=== PATIENT | male | born 1980 | race Caucasian/White ===

== ENCOUNTER 2018-08-10 16:32 | Emergency (ER) | payer OTHER ==
[2018-08-10 17:35] VITALS: BP 126/98
--- NOTE | 2018-08-10 18:03 | UC ---
Cardiac HPI - HPI Summary HPI Summary: Patient complains of about 1 month of sharp left-sided chest pain. He sustained a compound fracture of his right ankle last summer and since then has been using crutches to assist with mobility. For the past few months he has only been using a left-sided crutch. At his orthopedic appointment 1 week ago he was told his blood pressure was high and he should have it evaluated. Patient does not know what his reading was. Has not yet established with a PCP so came in here for further evaluation of his left-sided chest pain and blood pressure. Pain is worse with deep breaths, coughing and movement. Not worse with exertion. He denies shortness of breath and sweats. He did have some nausea last week for a couple of days but none now. - History of Current Complaint Chief Complaint: UCChestPain Stated Complaint: CHEST PAIN Time Seen by Provider: 08/10/18 16:52 Hx Obtained From: Patient Onset/Duration: Gradual Onset, Lasting Weeks, Still Present Timing: Constant Initial Severity: Moderate Current Severity: Moderate Pain Intensity: 4 Chest Pain Location: Left Anterior Character: Sharp/Stabbing Aggravating Factor(s): Movement, Deep Breaths Alleviating Factor(s): Rest Associated Signs & Symptoms: Positive: Chest Pain. Negative: Headaches, Numbness, Tingling, Dizziness, SOB, Nausea/Vomiting, Cough, Back Pain - Allergy/Home Medications Allergies/Adverse Reactions: Allergies Allergy/AdvReac Type Severity Reaction Status Date / Time No Known Allergies Allergy Verified 08/10/18 16:44 PMH/Surg Hx/FS Hx/Imm Hx Previously Healthy: Yes - Surgical History Surgical History: Yes Surgery Procedure, Year, and Place: Ear surgery. R ankle surgery x 3 - Family History Known Family History: Positive: Other - CVA Negative: Cardiac Disease - Social History Alcohol Use: Weekly Substance Use Type: Marijuana Smoking Status (MU): Heavy Every Day Tobacco Smoker Review of Systems All Other Systems Reviewed And Are Negative: Yes Constitutional: Positive: Negative Skin: Positive: Negative Respiratory: Positive: Negative Cardiovascular: Positive: Chest Pain Gastrointestinal: Positive: Negative Musculoskeletal: Positive: Myalgia Physical Exam Triage Information Reviewed: Yes Appearance: Well-Appearing, No Pain Distress, Well-Nourished Vital Signs: Initial Vital Signs Temp 99.7 F 08/10/18 16:39 Pulse 95 08/10/18 16:39 Resp 18 08/10/18 16:39 BP 154/98 08/10/18 16:39 Pulse Ox 100 08/10/18 16:39 Vital Signs Reviewed: Yes Eyes: Positive: Conjunctiva Clear ENT: Positive: Hearing grossly normal, Pharynx normal, TMs normal Neck: Positive: Supple, Nontender, No Lymphadenopathy Respiratory Exam: Normal Cardiovascular Exam: Normal Abdomen Description: Positive: Soft Musculoskeletal: Positive: No Edema Neurological: Positive: Alert Psychological: Positive: Age Appropriate Behavior Skin: Negative: Rashes - Assessment/Plan Course Of Treatment: ADVISED PATIENT THAT I COULD NOT PROPERLY EVALUATE FOR ANY UNDERLYING CARDIAC ETIOLOGY FOR HIS CHEST PAIN. SYMPTOMS ARE CONSISTENT WITH MUSCULOSKELETAL STRAIN FROM OVERUSE. PATIENT HAS BEEN USING A CRUTCH ON HIS LEFT SIDE FOR SEVERAL MONTHS DUE TO AN ANKLE FRACTURE. WILL TREAT SUCH WITH IBUPROFEN AND FLEXERIL. ADVISED TO REST AND STRETCH ABLE. FOLLOW-UP WITH PCP. PT DECLINES TRANSFER TO ED. ADVISED THAT HE COULD BE RISKING WORSENING OF HIS CONDITION THAT COULD POSE A THREAT TO HIS LIFE, HEALTH AND MEDICAL SAFETY. HE VERBALIZES UNDERSTANDING AND CONTINUES TO DECLINE TRANSFER. - Clinical Impression Provider Diagnosis: Muscle strain of anterior chest wall Discharge - Sign-Out/Discharge Documenting (check all that apply): Patient Departure All imaging exams completed and their final reports reviewed: No Studies - Discharge Plan Condition: Stable Disposition: HOME Prescriptions: Cyclobenzaprine TAB* [Flexeril TAB*] 10 mg PO BID PRN #30 tab PRN Reason: Pain Ibuprofen TAB* [Motrin TAB* 600 MG] 1 tab PO Q6H PRN #30 tab PRN Reason: Pain Patient Education Materials: Muscle Strain (ED) Referrals: [facility] [Outside] - 1 Week Additional Instructions: YOUR RECHECK BP WAS 126/98. THE BOTTOM NUMBER IS HIGH. YOU SHOULD HAVE THIS ADDRESSED. IF YOU ARE UNABLE TO ESTABLISH WITH A PCP MAKE AN APPT WITH [facility] OR GO TO THE [facility]. 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 USE THE IBUPROFEN FOR PAIN. MUSCLE RELAXER 2 TIMES DAILY IF NEEDED. IT CAN MAKE YOU DROWSY SO USE WITH CAUTION. BE SURE TO GO THROUGH SLOW RANGE OF MOTION AND STRETCHING EXERCISES DAILY YOU ARE ABLE TO PREVENT STIFFENING UP AND MAKING THE DISCOMFORT WORSE. REST MUCH POSSIBLE. BE AWARE THAT WE HAVE NOT EVALUATED YOU FOR ANY UNDERLYING CARDIAC ETIOLOGY. GO TO THE ER WITHOUT FAIL IF YOU DEVELOP SHORTNESS OF BREATH, WORSENING CHEST PAIN, NAUSEA, SWEATS, DIZZINESS OR ANY OTHER CONCERNING SYMPTOMS. FOR HELP WITH APPLYING FOR INSURANCE COVERAGE CONTACT AN INSURANCE NAVIGATOR AT THE [facility] OR [address] [phone] [email or web address] WALK IN HOURS WEDNESDAY 2P-6P WEDNESDAY 4P-8P [address] - Billing Disposition and Condition Condition: STABLE Disposition: Home
== END 2018-08-10 17:47 | disposition home or self-care (01) ==
LOC: UCEAST 16:32
DX: S29.011A Strain of muscle and tendon of front wall of thorax, initial encounter (principal); F17.290 Nicotine dependence, other tobacco product, uncomplicated; X58.XXXA Exposure to other specified factors, initial encounter; Y92.9 Unspecified place or not applicable
CPT/HCPCS: 99202; G0463

== ENCOUNTER → 2018-08-19 14:28 | Emergency (ER) | payer SELFPAY ==
[2018-08-19 16:40] VITALS: BP 141/88
== END | disposition left against medical advice (07) ==
LOC: ED 14:28
DX: R07.9 Chest pain, unspecified (principal); Z53.21 Procedure and treatment not carried out due to patient leaving prior to being seen by health care provider
CPT/HCPCS: 71046; 93005

== ENCOUNTER 2018-08-25 05:48 | Emergency (ER) | payer MEDICAID ==
--- NOTE | 2018-08-25 06:26 | ED ---
HPI Chest Pain - HPI Summary HPI Summary: Pt. is a 37 y.o male who presents to the ER for chest pain x 2 months. Pt. states he had a right compound ankle fracture during the summer of last year which led to multiple surgeries. Pt. states he has been in PT and is now using one crutch. Pt. does not recall any injury to chest wall but notes he is in PT and was using crutches for a while. Pt. states pain is located to a specific spot to his left anterior chest wall. Pain is worse with inspiration and leaning forward. Pain does not increase with physical activity. Pt. currently does not have a PCP but states his BP has been high at his ortho. apts. Pt. does smoke. He notes he believes his grandfather had a heart attack when he was older. Pt. otherwise denies recent illness, cough, fever, abd. pain, calf swelling/pain. Sxs are moderate in severity. - History of Current Complaint Chief Complaint: EDChestWallPain Time Seen by Provider: 08/25/18 06:10 Hx Obtained From: Patient Pain Intensity: 4 - Allergy/Home Medications Allergies/Adverse Reactions: Allergies Allergy/AdvReac Type Severity Reaction Status Date / Time No Known Allergies Allergy Verified 08/25/18 05:59 Home Medications: Home Medications NK [No Home Medications Reported] 08/25/18 [History Confirmed 08/25/18] PMH/Surg Hx/FS Hx/Imm Hx Previously Healthy: Yes - Surgical History Surgery Procedure, Year, and Place: Ear surgery. R ankle surgery x 3 Infectious Disease History: No Infectious Disease History: Denies: Traveled Outside the [place] in Last 30 Days - Family History Known Family History: Positive: Other - CVA Negative: Cardiac Disease - Social History Occupation: Employed Full-time Lives: With Family Alcohol Use: Weekly Alcohol Amount: 4/5x Substance Use Type: Reports: Marijuana Smoking Status (MU): Heavy Every Day Tobacco Smoker Review of Systems Constitutional: Negative Negative: Fever, Chills Eyes: Negative ENT: Negative Positive: Chest Pain Respiratory: Negative Negative: Shortness Of Breath, Cough Gastrointestinal: Negative Negative: Abdominal Pain, Vomiting, Diarrhea Genitourinary: Negative Positive: Other - left sided chest pain Skin: Negative Neurological: Negative All Other Systems Reviewed And Are Negative: Yes Physical Exam Triage Information Reviewed: Yes Vital Signs On Initial Exam: Initial Vitals Temp Pulse Resp BP Pulse Ox 98.0 F 108 20 132/90 97 08/25/18 05:55 08/25/18 05:55 08/25/18 05:55 08/25/18 05:55 08/25/18 05:55 Vital Signs Reviewed: Yes Appearance: Positive: Well-Appearing - Pt. sitting up in bed in NAD. Skin: Positive: Warm, Dry Head/Face: Positive: Normal Head/Face Inspection Eyes: Positive: Normal, EOMI, JAZLYN, Conjunctiva Clear ENT: Positive: Pharynx normal, TMs normal Neck: Positive: Supple Respiratory/Lung Sounds: Positive: Clear to Auscultation, Breath Sounds Present. Negative: Rales, Rhonchi, Wheezes Cardiovascular: Positive: Normal, RRR. Negative: Murmur Neurological: Positive: Normal, CN Intact II-III Psychiatric: Positive: Affect/Mood Appropriate Diagnostics - Vital Signs Vital Signs Temp Pulse Resp BP Pulse Ox 08/25/18 06:08 90 21 132/85 97 08/25/18 06:05 17 08/25/18 05:55 98.0 F 108 20 132/90 97 - Laboratory Result Diagrams: 08/25/18 06:41 08/25/18 06:41 Lab Statement: Any lab studies that have been ordered have been reviewed, and results considered in the medical decision making process. Chest Pain Course/Dx - Course Course Of Treatment: Patient presenting for ongoing chest pain 2 months. Pain is reproducible and located to specific spot on chest wall. ECG done at 0627 shows a sinus rhythm of 82 bpm, normal axis, no STEMI, early repol. CXR negative for acute findings. Labs unremarkable other than elevated alk phos and MCV. Negative trop and ddimer. Suspect pain is muscular in nature. Results discussed with pt. He notes that he drinks ETOH about 4 times a week. Advised to avoid smoking and etoh. [facility]. To return to ER if sxs change or worsen. Pt .understands and agrees with plan. - Chest Pain Differential Diagnosis/HQI/PQRI: Acute NE, ACS, Chest Wall, GI Disease, Lower Respiratory Infection, Pulmonary Edema, Pulmonary Embolism - Diagnoses Provider Diagnoses: Chest wall muscle strain, Atypical chest pain Discharge - Sign-Out/Discharge Documenting (check all that apply): Patient Departure Patient Received Moderate/Deep Sedation with Procedure: No - Discharge Plan Condition: Good Disposition: HOME Patient Education Materials: Chest Pain (ED), Chest Wall Pain (ED) Referrals: [facility] [Outside] [facility] [Outside] Additional Instructions: Call the [facility] today to schedule a close follow up appointment Suspect pain is muscular in nature Recommend rest, stretch, ice and ibuprofen Avoid smoking Return to ER if symptoms change or worsen - Billing Disposition and Condition Condition: GOOD Disposition: Home
[2018-08-25 06:48] LABS: ABS Basophils 0.1 10^3/ul (0-0.2); ABS Eosinophils 0.2 10^3/ul (0-0.6); ABS Lymphocytes 2.3 10^3/ul (1.0-4.8); ABS Monocytes 0.9 10^3/ul (0-0.8); ABS Neutrophils 4.4 10^3/ul (1.5-7.7); ABS Nucleated RBC 0 10^3/ul; Eosinophil % 2.9 %; Hematocrit 47 % (42-52); Hemoglobin 15.7 g/dl (14.0-18.0); Lymphocyte % 28.6 %; Mean Corpuscular HGB Conc 33 g/dl (31-36); Mean Corpuscular Hemoglobin 34 pg (27-31); Mean Corpuscular Volume 101 fL (80-94); Mean Platelet Volume 7.5 fL (7.4-10.4); Nucleated Red Blood Cells % 0; Platelet Count 235 10^3/ul (150-450); Red Blood Count 4.67 10^6/ul (4.00-5.40); Red Cell Distribution Width 14 % (10.5-15); White Blood Count 7.9 10^3/ul (3.5-10.8)
[2018-08-25 06:58] LABS: Activated Partial Thrombo Time 28.6 seconds (26.0-36.3)
[2018-08-25 07:05] LABS: Albumin 3.8 g/dL (3.2-5.2); Albumin/Globulin Ratio 1.4 (1-3); BUN/Creatinine Ratio 16.2 (8-20); Calcium 9.1 mg/dL (8.6-10.3); EGFR African American 104.1 (>60); Globulin 2.7 g/dL (2-4); Magnesium 1.7 mg/dL (1.9-2.7); Potassium 4.4 mmol/L (3.5-5.0); Total Bilirubin 0.3 mg/dL (0.2-1.0); Total Protein 6.5 g/dL (6.4-8.9)
[2018-08-25 08:00] VITALS: BP 122/90
== END 2018-08-25 08:00 | disposition home or self-care (01) ==
LOC: ED 05:48
DX: S29.011A Strain of muscle and tendon of front wall of thorax, initial encounter (principal); R07.89 Other chest pain; X58.XXXA Exposure to other specified factors, initial encounter; Y92.9 Unspecified place or not applicable; F17.210 Nicotine dependence, cigarettes, uncomplicated
CPT/HCPCS: 36415; 71045; 80053; 83735; 84484; 85025; 85379; 85730; 93005; 99283